=== PATIENT | male | born 1970 | race Caucasian/White ===

== ENCOUNTER 2016-12-17 14:50 | Emergency (ER) | payer OTHER ==
--- NOTE | ~2016-12-17 | CT2 ---
[facility] A Service of [facility] RADIOLOGY TEXT RESULTS PATIENT: IVAN VALDEZ LOCATION: SED : 70 UNIT #: [id number] AGE: [address]: Srini Maldonado MD SEX: M ORDER DR: [id number] [address] [address] [id number] E MR#: [id number] Acc #: [id number] NAME: IVAN VALDEZ : 1970 SEX: M STUDY DATE/TIME: 12/17/2016 16:45 UNIT: SED ROOM: STUDY DESCRIPTION: CT Abd and Pelv W Cont Attending Physician: Srini Maldonado M.D. Ordering Physician: Srini Maldonado M.D. Primary Care Physician: No Primary Care Physician MEDICAL IMAGING REPORT This report is preliminary unless electronic signature is present. EXAM CT of the abdomen and pelvis with IV contrast media HISTORY Abdominal pain for 3 days with bloating and constipation. TECHNIQUE PA and axial imaging of the abdomen and pelvis was obtained with IV contrast media: FINDINGS Lung bases are clear. Liver, gallbladder, spleen, adrenal glands and pancreas are normal. Right and left kidney are normal. Postop changes are present within the colon and small bowel. No dilated or thickened loops of bowel are seen. The appendix is not identified. No pelvic masses or fluid collections are seen. The bladder is unremarkable. There is evidence of multilevel degenerative disc disease particularly at the L4-5 and L5-S1. CONCLUSION Postsurgical changes in the small bowel and colon. No acute findings in the abdomen or pelvis. Dictated by... Randolph Carr M.D. THIS IS AN ELECTRONICALLY VERIFIED REPORT Randolph Carr M.D. at 12/18/2016 7:24 AM TINO/sisi TD: 12/17/2016 21:08 [facility] A Service of [facility] RADIOLOGY TEXT RESULTS PATIENT: IVAN VALDEZ LOCATION: SED : 70 UNIT #: [id number] AGE: [address]: Srini Maldonado MD SEX: M ORDER DR: JOB #: [id number] MEDICAL IMAGING REPORT Page 1 of 1
[~2016-12-17 14:50] MED LIST: ALBUTEROL 0.5ML INH; ALBUTEROL17 G1 IH; ALBUTEROL17 GM; ALBUTEROL17 GM INH; ALBUTEROL20 ml INH; AMLODIPINE BESYL5 MG PO; ASPIRIN81 MG PO; BACITRACIN30 GM TOP; BACTRIM DS TABL1 TA1 PO; BENTYL10 MG PO; BENTYL20 M1 PO; BENZONATATE PO; BLOOD PRESSURE MED; BP MED; BUSPIRONE HCL10 MG PO; CALCIUM 600 +1 EAC5 PO; CATAPRES-TTS-20.2 MG PO; CELEXA PO; CIPRO PO; CIPRO250 MG PO; CLARITIN10 M3 PO; CLEOCIN150 M1 PO; CLONIDINE HCL0.1 MG; CLONIDINE PO; CORTISPORIN-TC10 M1 AU; COZAAR100 MG; CYCLOBENZAPRINE5 MG PO; DEPAKOTE PO; FLAGYL PO; FLAGYL250 MG PO; FLEXERIL10 M1 PO; FLEXERIL10 MG PO; FLOMAX0.4 M1 PO; FLONASE 0.05% N16 G1; HARVONI PO; HYDROCODON-ACE1 EAC1 PO; HYTRIN5 MG PO; IBUPROFEN800 MG PO; KEFLEX500 MG PO; KETOPROFEN PO; LIBRIUM; LISINOPRIL-HCTZ1 T14; LISINOPRIL5 MG PO; LOMOTIL TABLET1 TAB PO; LORTAB 10-5001 EACH PO; LORTAB 5/500 TA1 TA1 PO; LORTAB 5/500 TA1 TA2 PO; LOSARTAN-HCTZ1 EAC2 PO; MEDROL4 MG/DOSE- PO; METOPROLOL SUCC25 MG PO; MIRALAX17 GM PO; MOBIC PO; MONTELUKAST SOD10 MG PO; NAPROSYN500 MG PO; NAPROXEN PO; NITROGLYCERIN0.4 MG SL; NITROGLYGERIN0.4 MG SL; NO MEDICATIONS; NORCO 5/325 TAB1 TAB PO; NORFLEX100 M1 PO; OMEGA 3 FISH OI1 CAP PO; OMNICEF300 MG PO; PERCOCET 7.5-31 EACH PO; PERCOCET10 PO; PERCOCET5/325 PO; PHENERGAN PO; PHENERGAN25 M1 PO; PHENERGAN25 MG PO; PREDNISONE PO; PREVACID30 MG/BLIS PO; PRILOSEC20 M1 PO; PROPRANOLOL HCL10 MG; PROTONIX PO; PYRIDIUM; ROBITUSSIN PO; SEROQUEL XR200 MG PO; SINGULAIR; SYMBICORT INH; SYMBICORT80; TEGRETOL PO; TRAMADOL HCL50 M1 PO; TYLENOL #3 PO; ULTRAM PO; VALIUM10 MG; VENTOLIN5 MG/ML INH; VIBRAMYCIN100 M1 PO; VICODIN 5/1 TAB 5/50 PO; VICODIN PO; VOLTAREN50 MG PO; VOLTAREN75 MG PO; ZITHROMAX PO; ZOFRAN PO; ZOFRANODT PO; ZYRTEC10 M1 PO; [UNRECOGNIZED DRUG - REMARK]; [UNRECOGNIZED DRUG - REMARK]
[2016-12-17 15:52] LABS: URINE SOURCE CLEAN CATCH
[2016-12-17 15:54] LABS: URINE APPEARANCE CLEAR; URINE BLOOD NEG (NEG); URINE COLOR YELLOW; URINE GLUCOSE NEG (NORM); URINE KETONE TRACE (NEG); URINE LEUKOCYTE ESTERASE NEG (NEG); URINE NITRATE NEG (NEG); URINE PH 5.5 (5-8); URINE SPECIFIC GRAVITY 1.025 (1.003-1.035); URINE UROBILINOGEN 0.2 MG/DL (NORM)
[2016-12-17 16:02] LABS: MICRO INDICATED? NO; URINE BILIRUBIN NEG (NEG); URINE PROTEIN NEG (NEG)
[2016-12-17 16:11] LABS: BASOPHIL% 0.5 % (0-2.5); EOSINOPHIL# 0.1 X10e3 (0-0.7); EOSINOPHIL% 0.9 % (0.0-7.0); HEMATOCRIT 44.1 % (38.0-50.0); HEMOGLOBIN 15.1 gm/dL (13.0-16.0); LYMPHOCYTE# 2.4 X10e3 (1.0-3.5); MEAN CELL VOLUME 88.6 FL (83-96); MEAN CORPUSCULAR HEMOGLOBIN 30.3 PG (28-34); MEAN CORPUSCULAR HGB CONC 34.2 g/dL (30-36); MEAN PLATELET VOLUME 6.7 FL (6.5-11.5); MONOCYTE# 0.6 X10e3 (0-1.0); MONOCYTE% 9.9 % (3.0-12.0); NEUTROPHIL# 3.2 X10e3 (1.5-7.1); NEUTROPHIL% 50.7 % (40-75); PLATELET COUNT 324 X10e3 (140-420); RED BLOOD COUNT 4.98 X10e (3.90-5.60); RED CELL DISTRIBUTION WIDTH 13.1 % (11.0-15.5); WHITE BLOOD COUNT 6.3 X10e3 (4.0-10.5)
[2016-12-17 16:23] LABS: DIFF IND NO
[2016-12-17 16:29] LABS: ALBUMIN SERUM 4.5 g/dL (3.5-5.0); BILIRUBIN, DIRECT 0.1 mg/dL (0.0-0.2); BILIRUBIN,INDIRECT 0.5 mg/dL (0.0-0.9); BILIRUBIN,TOTAL 0.6 mg/dL (0.2-2.0); BUN/CREATININE RATIO 9.28; CALCIUM SERUM 8.7 mg/dL (8.4-10.2); CREATININE SERUM 1.4 mg/dL (0.6-1.4); GLOM FILT RATE Estimated 59.9 mL/min (>60); POTASSIUM 3.2 mmol/L (3.5-5.1); PROTEIN TOTAL SERUM 7.5 g/dL (6.0-8.3)
== END 2016-12-17 17:33 | disposition home or self-care (01) ==
LOC: SED 14:50
PROVIDERS: Emergency Medicine
DX: R10.84 Generalized abdominal pain (principal); E87.6 Hypokalemia; J45.909 Unspecified asthma, uncomplicated; F32.9 Major depressive disorder, single episode, unspecified; F17.200 Nicotine dependence, unspecified, uncomplicated; Z90.49 Acquired absence of other specified parts of digestive tract; Z88.0 Allergy status to penicillin; Z88.6 Allergy status to analgesic agent; Z79.899 Other long term (current) drug therapy; Z79.82 Long term (current) use of aspirin
CPT/HCPCS: 36415; 74177; 80048; 80076; 81003; 83690; 85025; 96361; 96374; 96375; 99284; J2765; Q9967

== ENCOUNTER 2017-01-02 14:56 | Emergency (ER) | payer OTHER ==
--- NOTE | ~2017-01-02 | CR181 ---
[facility] A Service of [facility] RADIOLOGY TEXT RESULTS PATIENT: IVAN VALDEZ LOCATION: SED : 70 UNIT #: [id number] AGE: [address]: Rosalva Guadalupe SEX: M ORDER DR: [id number] [address] [address] [id number] E MR#: [id number] Acc #: [id number] NAME: IVAN VALDEZ : 1970 SEX: M STUDY DATE/TIME: 01/02/2017 15:23 UNIT: SED ROOM: STUDY DESCRIPTION: CR Lumbar Spine 2 or 3 Views Attending Physician: Rosalva Guadalupe P.A.-C. Ordering Physician: Rosalva Guadalupe P.A.-C. Primary Care Physician: No Primary Care Physician MEDICAL IMAGING REPORT This report is preliminary unless electronic signature is present. EXAM Lumbar spine, 3 views. HISTORY Back pain after twisting injury today. FINDINGS Three views of the lumbar spine demonstrate mild left lumbar curve. Mild multilevel hypertrophic and degenerative changes. No fracture or subluxation. Mild disc space narrowing at L4-5 and L5-S1. Surgical jose in the left abdomen and central pelvis. IMPRESSION No acute findings. Mild multilevel degenerative and hypertrophic changes. Dictated by... Ian Keane M.D. THIS IS AN ELECTRONICALLY VERIFIED REPORT Ian Keane M.D. at 01/02/2017 10:47 PM JASONL/kyler TD: 01/02/2017 21:38 JOB #: [id number] MEDICAL IMAGING REPORT Page 1 of 1
[2017-01-02] MEDS ORDERED: DESYREL150 M1 PO (15:24)
== END 2017-01-02 16:06 | disposition home or self-care (01) ==
LOC: SED 14:56
DX: S39.012A Strain of muscle, fascia and tendon of lower back, initial encounter (principal); I10 Essential (primary) hypertension; Z88.0 Allergy status to penicillin; Z88.8 Allergy status to other drugs, medicaments and biological substances; Z79.82 Long term (current) use of aspirin; Z79.899 Other long term (current) drug therapy; X50.9XXA Other and unspecified overexertion or strenuous movements or postures, initial encounter; Y92.9 Unspecified place or not applicable
CPT/HCPCS: 72100; 99283

== ENCOUNTER 2017-01-30 15:16 | Emergency (ER) | payer OTHER ==
--- NOTE | ~2017-01-30 | CR72 ---
[facility] A Service of [facility] RADIOLOGY TEXT RESULTS PATIENT: IVAN VALDEZ LOCATION: SED : 70 UNIT #: [id number] AGE: [address]: Srini Maldonado MD SEX: M ORDER DR: [id number] [address] [address] [id number] E MR#: [id number] Acc #: [id number] NAME: IVAN VALDEZ. : 1970 SEX: M STUDY DATE/TIME: 01/30/2017 15:37 UNIT: SED ROOM: STUDY DESCRIPTION: CR Chest Single View Portable Attending Physician: Srini Maldonado M.D. Ordering Physician: Srini Maldonado M.D. Primary Care Physician: No Primary Care Physician MEDICAL IMAGING REPORT This report is preliminary unless electronic signature is present. EXAM Portable chest 01/30/2017, [facility] HISTORY A 46-year-old male patient. Chest pain since yesterday/last night. 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 COMPARISON Chest 11/26/2015. FINDINGS AP upright portable chest demonstrates normal stable heart size. Mediastinal contours and hilar structures are preserved. Bilateral lungs are expanded and clear. I see no infiltrate, edema or effusion. IMPRESSION Negative chest Dictated by... Robel Resendiz M.D. THIS IS AN ELECTRONICALLY VERIFIED REPORT Robel Resendiz M.D. at 02/02/2017 7:58 AM ABAD/sisi TD: 01/30/2017 19:27 JOB #: [id number] MEDICAL IMAGING REPORT Page 1 of 1
--- NOTE | ~2017-01-30 | EKG ---
PATIENT: IVAN VALDEZ UNIT #: [id number] Ventricular Rate: 80 BPM Atrial Rate: 80 BPM P-R Interval: 164 ms QRS Duration: 90 ms Q-T Interval: 360 ms QTC Calculation(Bezet): 415 ms P [place]: 14 degrees Calculated R [place]: 5 degrees Calculated T [place]: 29 degrees Diagnosis Line: Normal sinus rhythm Diagnosis Line: Normal ECG Diagnosis Line: When compared with ECG of 26-NOV-2015 18:39, Diagnosis Line: No significant change was found Diagnosis Line: Confirmed by SHANNON GIL MD ([id number]) on Diagnosis Line: 02/04/2017 8:38:27 AM INTERPRETING MD: JEFFERY ORLANDO
[~2017-01-30 15:16] MED LIST changes: +DESYREL150 M1 PO
[2017-01-30 15:37] LABS: BASOPHIL% 0.4 % (0-2.5); EOSINOPHIL# 0.1 X10e3 (0-0.7); EOSINOPHIL% 2.1 % (0.0-7.0); HEMATOCRIT 42.5 % (38.0-50.0); HEMOGLOBIN 14.5 gm/dL (13.0-16.0); LYMPHOCYTE# 2.4 X10e3 (1.0-3.5); LYMPHOCYTE% 34.2 % (17.0-45.0); MEAN CELL VOLUME 89.4 FL (83-96); MEAN CORPUSCULAR HEMOGLOBIN 30.4 PG (28-34); MEAN CORPUSCULAR HGB CONC 34.1 g/dL (30-36); MEAN PLATELET VOLUME 6.3 FL (6.5-11.5); MONOCYTE# 0.7 X10e3 (0-1.0); MONOCYTE% 9.3 % (3.0-12.0); NEUTROPHIL# 3.8 X10e3 (1.5-7.1); PLATELET COUNT 299 X10e3 (140-420); RED BLOOD COUNT 4.75 X10e (3.90-5.60); RED CELL DISTRIBUTION WIDTH 14.3 % (11.0-15.5)
[2017-01-30 15:40] LABS: DIFF IND NO
[2017-01-30 15:50] LABS: PROTHROMBIN TIME (PATIENT) 11.1 SECONDS (9.5-12.4)
[2017-01-30 15:53] LABS: POC - CKMB <1.0 ng/mL (0.0-7.9)
[2017-01-30 15:54] LABS: POC - TROPONIN <0.05 ng/mL (<=0.05)
[2017-01-30 15:57] LABS: PARTIAL THROMBOPLASTIN TIME 24.1 SECONDS (25.6-38.1)
[2017-01-30 15:59] LABS: ALBUMIN SERUM 4.1 g/dL (3.5-5.0); ALKALINE PHOSPHATASE 75 U/L (32-92); ALT (SGPT) 17 U/L (10-40); AST (SGOT) 15 U/L (10-42); BILIRUBIN,TOTAL 0.4 mg/dL (0.2-2.0); BLOOD UREA NITROGEN 10 mg/dL (9-23); BUN/CREATININE RATIO 7.69; CALCIUM SERUM 8.8 mg/dL (8.4-10.2); CARBON DIOXIDE 24 mmol/L (22-31); CHLORIDE 107 mmol/L (100-111); CREATININE SERUM 1.3 mg/dL (0.6-1.4); GLOM FILT RATE Estimated 65.5 mL/min (>60); GLUCOSE FASTING 95 mg/dL (70-110); POTASSIUM 3.8 mmol/L (3.5-5.1); PROTEIN TOTAL SERUM 6.8 g/dL (6.0-8.3); SODIUM 138 mmol/L (135-145)
[2017-01-30 16:13] LABS: BILIRUBIN, DIRECT <0.1 mg/dL (0.0-0.2); BILIRUBIN,INDIRECT 0.3 mg/dL (0.0-0.9)
[2017-01-30 17:23] LABS: POC - CKMB <1.0 ng/mL (0.0-7.9); POC - TROPONIN <0.05 ng/mL (<=0.05)
== END 2017-01-30 17:38 | disposition home or self-care (01) ==
LOC: SED 15:16
PROVIDERS: Emergency Medicine
DX: R07.89 Other chest pain (principal); F17.210 Nicotine dependence, cigarettes, uncomplicated; Z79.82 Long term (current) use of aspirin; Z88.0 Allergy status to penicillin; Z88.6 Allergy status to analgesic agent; Z88.8 Allergy status to other drugs, medicaments and biological substances; Z79.1 Long term (current) use of non-steroidal anti-inflammatories (NSAID); Z79.899 Other long term (current) drug therapy
CPT/HCPCS: 36415; 71010; 80048; 80076; 82553; 84484; 85025; 85610; 85730; 93005; 96361; 96374; 99285; J2270

== ENCOUNTER 2017-03-07 18:48 | Emergency (ER) | payer OTHER ==
[~2017-03-07] VITALS: Ht 175.3 cm; Wt 99.8 kg
[2017-03-07] MEDS ORDERED: DULERA 100 MCG/13 GM (19:03)
[2017-03-07] MEDS ORDERED: TRAZODONE (19:03)
[2017-03-07] MEDS ORDERED: CLONIDINE (19:04)
[2017-03-07] MEDS ORDERED: CETIRIZINE HCL5 MG (19:04)
[2017-03-07] MEDS ORDERED: COREG (19:04)
[2017-03-07] MEDS ORDERED: ASPIRIN (19:04)
[2017-03-07] MEDS ORDERED: COZAAR (19:04)
[2017-03-07] MEDS ORDERED: NORVASC2.5 MG (19:04)
[2017-03-07] MEDS ORDERED: SINGULAIR (19:04)
[2017-03-07] MEDS ORDERED: ATARAX (19:05)
[2017-03-07] MEDS ORDERED: TOPROL XL (19:05)
[2017-03-07] MEDS ORDERED: PROTONIX (19:05)
[2017-03-07] MEDS ORDERED: FLOVENT7.9 GM (19:05)
[2017-03-07] MEDS ORDERED: AMITRYPTYLINE (19:05)
[2017-03-07] MEDS ORDERED: ALBUTEROL17 GM (19:05)
== END 2017-03-07 20:35 | disposition home or self-care (01) ==
LOC: SED 18:48
DX: S86.912A Strain of unspecified muscle(s) and tendon(s) at lower leg level, left leg, initial encounter (principal); I51.9 Heart disease, unspecified; J45.909 Unspecified asthma, uncomplicated; N41.9 Inflammatory disease of prostate, unspecified; F17.200 Nicotine dependence, unspecified, uncomplicated; Z86.19 Personal history of other infectious and parasitic diseases; Z90.49 Acquired absence of other specified parts of digestive tract; Z79.899 Other long term (current) drug therapy; Z88.0 Allergy status to penicillin; Z88.8 Allergy status to other drugs, medicaments and biological substances; X58.XXXA Exposure to other specified factors, initial encounter
CPT/HCPCS: 29530; 99283

== ENCOUNTER 2017-03-26 14:46 | Emergency (ER) | payer OTHER ==
[~2017-03-26] VITALS: Ht 175.3 cm; Wt 95.2 kg
[~2017-03-26 14:46] MED LIST changes: +AMITRYPTYLINE; +ASPIRIN; +ATARAX; +CETIRIZINE HCL5 MG; +CLONIDINE; +COREG; +COZAAR; +DULERA 100 MCG/13 GM; +FLOVENT7.9 GM; +NORVASC2.5 MG; +PROTONIX; +TOPROL XL; +TRAZODONE
[2017-03-26 16:06] LABS: URINE SOURCE CLEAN CATCH
[2017-03-26 16:16] LABS: URINE APPEARANCE CLEAR; URINE BILIRUBIN NEG (NEG); URINE BLOOD NEG (NEG); URINE COLOR YELLOW; URINE GLUCOSE NEG (NEG); URINE KETONE NEG (NEG); URINE LEUKOCYTE ESTERASE NEG (NEG); URINE NITRATE NEG (NEG); URINE PROTEIN NEG (NEG); URINE SPECIFIC GRAVITY 1.015 (1.003-1.035)
[2017-03-26 16:23] LABS: CULTURE INDICATED? NO
[2017-03-26 17:33] LABS: BASOPHIL% 0.4 % (0-2.5); EOSINOPHIL# 0.2 X10e3 (0-0.7); EOSINOPHIL% 2.2 % (0.0-7.0); HEMATOCRIT 41.5 % (38.0-50.0); HEMOGLOBIN 13.9 gm/dL (13.0-16.0); LYMPHOCYTE# 3.2 X10e3 (1.0-3.5); MEAN CELL VOLUME 88.7 FL (83-96); MEAN CORPUSCULAR HEMOGLOBIN 29.8 PG (28-34); MEAN CORPUSCULAR HGB CONC 33.6 g/dL (30-36); MEAN PLATELET VOLUME 6.5 FL (6.5-11.5); MONOCYTE# 0.7 X10e3 (0-1.0); MONOCYTE% 8.8 % (3.0-12.0); NEUTROPHIL# 3.4 X10e3 (1.5-7.1); NEUTROPHIL% 45.6 % (40-75); PLATELET COUNT 300 X10e3 (140-420); RED BLOOD COUNT 4.67 X10e (3.90-5.60); RED CELL DISTRIBUTION WIDTH 13.6 % (11.0-15.5); WHITE BLOOD COUNT 7.4 X10e3 (4.0-10.5)
[2017-03-26 17:37] LABS: DIFF IND NO
[2017-03-26 17:56] LABS: ALBUMIN SERUM 3.8 g/dL (3.5-5.0); ALKALINE PHOSPHATASE 73 U/L (32-92); ALT (SGPT) 18 U/L (10-40); AST (SGOT) 13 U/L (10-42); BILIRUBIN,TOTAL 0.3 mg/dL (0.2-2.0); BLOOD UREA NITROGEN 20 mg/dL (9-23); CALCIUM SERUM 8.6 mg/dL (8.4-10.2); CARBON DIOXIDE 23 mmol/L (22-31); CHLORIDE 103 mmol/L (100-111); CREATININE SERUM 1.6 mg/dL (0.6-1.4); GLOM FILT RATE Estimated 50.9 mL/min (>60); GLUCOSE FASTING 93 mg/dL (70-110); LIPASE 36 U/L (22-51); POTASSIUM 4.1 mmol/L (3.5-5.1); PROTEIN TOTAL SERUM 6.7 g/dL (6.0-8.3); SODIUM 133 mmol/L (135-145)
[2017-03-26 17:58] LABS: BILIRUBIN, DIRECT <0.1 mg/dL (0.0-0.2); BILIRUBIN,INDIRECT 0.2 mg/dL (0.0-0.9)
== END 2017-03-26 18:44 | disposition home or self-care (01) ==
LOC: CED 14:46
DX: R10.32 Left lower quadrant pain (principal); R19.7 Diarrhea, unspecified; I10 Essential (primary) hypertension; Z87.19 Personal history of other diseases of the digestive system; Z90.49 Acquired absence of other specified parts of digestive tract; Z88.8 Allergy status to other drugs, medicaments and biological substances; Z79.899 Other long term (current) drug therapy; F17.200 Nicotine dependence, unspecified, uncomplicated
CPT/HCPCS: 36415; 80048; 80076; 81003; 83690; 85025; 99284